=== PATIENT | female | born 1990 | race Caucasian/White ===

== ENCOUNTER 2018-06-26 06:33 | Inpatient (IN) ==
[~2018-06-26 06:33] MED LIST: ANCEF VIAL 1 GRAM ONE; D5 1/2 NS 1L W PITOCIN 20 UNITS/L 20 UNITS/1,000 ML BAG IV ONE; LR 1000 ML IV 1,000 ML IV ONE
[2018-06-26] MEDS ORDERED: ANCEF VIAL 1 GRAM IVP ONE (06:38)
[2018-06-26] MEDS ORDERED: D5 1/2 NS 1000 ML 1,000 ML IV SCH (06:38)
[2018-06-26] MEDS ORDERED: DILAUDID INJ ONE (06:52)
[2018-06-26] MEDS ORDERED: MARCAINE SPINAL ONE ×2 (06:53→14:28)
[2018-06-26] MEDS ORDERED: D5 1/2 NS 1L W PITOCIN 20 UNITS/L 20 UNITS/1,000 ML BAG IV ONE (07:15)
[2018-06-26] MEDS ORDERED: LR 1000 ML IV 1,000 ML IV ONE (07:15)
[2018-06-26] MEDS ORDERED: ZOFRAN INJ 4 MG VIAL IVP PRN ×2 (08:44→09:14)
[2018-06-26] MEDS ORDERED: REGLAN INJ 10 MG VIAL IVP PRN ×2 (08:44→09:14)
[2018-06-26] MEDS ORDERED: PHENERGAN INJ 25 MG IVP PRN (08:44)
[2018-06-26] MEDS ORDERED: DILAUDID INJ IVP PRN (08:44)
[2018-06-26] MEDS ORDERED: BENADRYL INJ 50 MG VIAL IVP PRN ×2 (08:44→09:14)
[2018-06-26] MEDS ORDERED: ADACEL or BOOSTRIX TDaP VACCINE IM ONE ×2 (09:14→12:53)
[2018-06-26] MEDS ORDERED: TORADOL 30 MG VIAL IVP PRN (09:14)
[2018-06-26] MEDS ORDERED: D5 1/2 NS 1000 ML 1,000 ML with PITOCIN 20 UNITS IV SCH ×2 (09:14)
[2018-06-26] MEDS ORDERED: NARCAN INJ IVP PRN (09:14)
[2018-06-26] MEDS ORDERED: SUDAFED PE PO PRN (09:14)
[2018-06-26] MEDS ORDERED: MYLICON TAB 80 MG CHEW PO PRN (09:14)
[2018-06-26] MEDS ORDERED: PERCOCET TAB 5/325 MG PO PRN (09:14)
[2018-06-26] MEDS: ROBITUSSIN (PLAIN) PO SCH ×4 (12:44→20:36)
[2018-06-26] MEDS: PRENATAL PLUS PO SCH (12:45)
[2018-06-26] MEDS: ZANTAC PO SCH ×2 (12:45→20:36)
[2018-06-26] MEDS ORDERED: VERSED ONE (14:06)
[2018-06-26] MEDS ORDERED: EPHEDRINE SULFATE INJ ONE (14:28)
[2018-06-26] MEDS ORDERED: XYLOCAINE 1 % (PLAIN) ONE (14:28)
[2018-06-26] MEDS ORDERED: PITOCIN ONE (14:28)
[2018-06-27 06:38] LABS: HEMATOCRIT 31.1 % (36.0-47.0); HEMOGLOBIN 10.6 g/dL (12.0-16.0)
[2018-06-27] MEDS ORDERED: MOTRIN TAB 800 MG PO PRN (09:11)
[2018-06-27] MEDS ORDERED: PERCOCET TAB 5/325 MG PO PRN (09:11)
[2018-06-27] MEDS: ROBITUSSIN (PLAIN) PO SCH (09:21)
[2018-06-27] MEDS: ZANTAC PO SCH (09:21)
[2018-06-27] MEDS: PRENATAL PLUS PO SCH (09:21)
[2018-06-27 12:44] VITALS: BP 96/55
[2018-06-27] MEDS ORDERED: BACTROBAN CREAM TOP SCH (14:00)
[2018-06-27] MEDS ORDERED: COLACE CAP 100 MG PO SCH (21:00)
== END 2018-06-27 12:45 | disposition home or self-care (01) | DRG 785 ==
LOC: LD 06:33 → MED/SURG 08:44
PROVIDERS: ADMIT Specialist; ATTEND Specialist
DX: O99.824 Streptococcus B carrier state complicating childbirth; Z37.0 Single live birth; Z30.2 Encounter for sterilization; O34.211 Maternal care for low transverse scar from previous cesarean delivery; N85.8 Other specified noninflammatory disorders of uterus; Z23 Encounter for immunization; Z3A.39 39 weeks gestation of pregnancy; O99.613 Diseases of the digestive system complicating pregnancy, third trimester; B95.1 Streptococcus, group B, as the cause of diseases classified elsewhere
CPT/HCPCS: 36415; 85014; 85018; 90715; A4216; A4222; S0197; J0690; J1170; J1200; J1885; J2250; J2405; J2590; J2765; J3490; J7120

== ENCOUNTER 2020-08-16 07:28 | Inpatient (IN) ==
[2020-08-16] MEDS ORDERED: LR 1000 ML IV 1,000 ML IV ONE ×2 (07:35→09:48)
[2020-08-16] MEDS ORDERED: ANCEF 1 GRAM IV PREMIX* 1 G/50 ML BAG IV ONE (07:35)
[2020-08-16] MEDS ORDERED: BACTROBAN TOPICAL OINT ONE (07:41)
[2020-08-16] MEDS ORDERED: OFIRMEV IV 1000 MG VIAL 1,000 MG/100 ML VIAL IV ONE (08:08)
[2020-08-16] MEDS ORDERED: FENTANYL INJ 100 mcg ONE ×2 (08:08→08:31)
[2020-08-16] MEDS ORDERED: BRIDION ONE ×2 (08:08→08:31)
[2020-08-16] MEDS ORDERED: PEPCID 20 MG IV PREMIX* 20 MG/50 ML BAG IV ONE (08:08)
[2020-08-16] MEDS ORDERED: ULTANE GAS IN ONE ×2 (08:09→08:31)
[2020-08-16] MEDS ORDERED: ZEMURON 50 MG VIAL ONE ×2 (08:09→08:31)
[2020-08-16] MEDS ORDERED: ROBINUL ONE (08:31)
[2020-08-16] MEDS ORDERED: VERSED ONE (08:31)
[2020-08-16] MEDS ORDERED: ZOFRAN INJ 4 MG VIAL ONE (08:31)
[2020-08-16] MEDS ORDERED: TORADOL 30 MG VIAL ONE (08:31)
[2020-08-16] MEDS ORDERED: XYLOCAINE 2 % (PLAIN) ONE (08:31)
[2020-08-16] MEDS ORDERED: DIPRIVAN VIAL ONE (08:31)
[2020-08-16] MEDS ORDERED: LACRI-LUBE S.O.P. ONE (08:31)
[2020-08-16] MEDS ORDERED: DECADRON INJ ONE (08:31)
[2020-08-16] MEDS ORDERED: KETALAR ONE (08:31)
[2020-08-16] MEDS ORDERED: DILAUDID INJ ONE (09:25)
[2020-08-16] MEDS ORDERED: BENADRYL INJ 50 MG VIAL IVP PRN (10:07)
[2020-08-16] MEDS ORDERED: REGLAN INJ 10 MG VIAL IVP PRN (10:07)
[2020-08-16] MEDS ORDERED: DILAUDID INJ IVP PRN (10:07)
[2020-08-16] MEDS ORDERED: ZOFRAN INJ 4 MG VIAL IVP PRN (10:07)
[2020-08-16] MEDS ORDERED: PHENERGAN INJ 25 MG IM PRN (10:07)
[2020-08-16] MEDS ORDERED: REGLAN INJ 10 MG VIAL ONE (11:19)
[2020-08-16] MEDS: DILAUDID INJ IVP PRN ×3 (12:40→22:40)
[2020-08-16] MEDS ORDERED: TRANSDERM-SCOP TD ONE (13:00)
[2020-08-16] MEDS ORDERED: TRANSDERM-SCOP TD SCH (13:00)
[2020-08-16] MEDS: D5 1/2 NS 1000 ML 1,000 ML IV SCH ×2 (14:34→23:30)
[2020-08-16] MEDS: ZOFRAN INJ 4 MG VIAL IV PRN ×3 (16:58→22:40)
[2020-08-17] MEDS: PHENERGAN INJ 25 MG IM PRN ×2 (03:30→16:18)
[2020-08-17] MEDS ORDERED: TYLENOL 325 MG TAB PO ONE (03:56)
[2020-08-17] MEDS: TYLENOL 325 MG TAB PO PRN ×2 (04:01→11:40)
[2020-08-17 06:08] LABS: BASOPHILS % (AUTO) 0.2 % (0.2-1.0); HEMATOCRIT 35.2 % (36.0-47.0); HEMOGLOBIN 11.5 g/dL (12.0-16.0); LYMPHOCYTES # (AUTO) 1.1 X10^3/uL (1.3-2.9); LYMPHOCYTES % (AUTO) 6.3 % (21.0-51.0); MEAN CORPUSCULAR HEMOGLOBIN 29.5 pg (27.0-34.0); MEAN CORPUSCULAR HGB CONC 32.6 g/dL (33.0-35.0); MEAN CORPUSCULAR VOLUME 90.4 fL (80.0-100.0); MEAN PLATELET VOLUME 9.8 fL (7.4-11.0); MONOCYTES # (AUTO) 2.1 x10^3/uL (0.3-0.8); MONOCYTES % (AUTO) 12.8 % (0.0-13.0); NEUTROPHILS # (AUTO) 13.6 x10^3/uL (2.2-4.8); NEUTROPHILS % (AUTO) 80.7 % (42.0-75.0); PLATELET COUNT 203 X10^3/uL (150.0-450.0); WHITE BLOOD COUNT 16.8 X10^3/uL (3.6-10.0)
[2020-08-17 06:26] LABS: ALANINE AMINOTRANSFERASE 610 Units/L (12-78); ALBUMIN 3.2 g/dL (3.4-5.0); ALKALINE PHOSPHATASE 103 Units/L (46-116); ASPARTATE AMINO TRANSFERASE 402 Units/L (15-37); BLOOD UREA NITROGEN 6 mg/dL (7-18); CALCIUM 8.3 mg/dL (8.5-10.1); CHLORIDE 100 mmol/L (98-107); COR CA(FOR HYPOALB) 8.9 mg/dL (8.5-10.1); COR NA(FOR HYPERGLY) 133 mmol/L (136-145); CREATININE 0.55 mg/dL (0.55-1.02); SODIUM 132 mmol/L (136-145); TOTAL PROTEIN 6.1 g/dL (6.4-8.2); eGFR NON BLACK RACES > 60 (>60)
--- NOTE | 2020-08-17 08:12 | DR.PROGNOT ---
Hospital Progress Notes - Progress Note for Day of: Progress Note Date: 08/17/20 - Chief Complaint Chief Complaint: c/o back pain with nausea , vomiting last night . urine is dark . Bilirubin is up 2.3 . was 0.3 pre op . AST 402. ALT 610. Alk Ph 103 . temp 98.2. stable VS. to have MRCP today - Past Medical Family Social History Past Med/Fam/Surg Hx: No changes since H&P Allergies: Allergies No Known Drug Allergies Allergy (Verified 07/28/20 10:00) - Review Of Systems ROS: No change since H&P - Vital Signs Vital Signs: Temperature 98.8 F Pulse Rate [Left Brachial] 88 Pulse Rate 83 Respiratory Rate 16 Blood Pressure [Left Arm] 115/64 Blood Pressure 100/56 O2 Sat by Pulse Oximetry 98 - Physical Exam Oriented: Normal Eyes: Normal Ear: Normal Nose: Normal Throat: Normal Respiratory: Normal Cardiovascular: Normal : Normal GI:Auscultation: Normal GI:Palpation: Normal GI: Tenderness: RUQ (soft abdomen with moderate tenderness . BS +) Mood Description: Calm Speech Pattern: Clear, Appropriate - Laboratory and Diagnostics Result Diagrams: 08/17/20 05:20 08/17/20 05:20 Labs: Laboratory WBC 16.8 X10^3/uL (3.6-10.0) H 08/17/20 05:20 RBC 3.90 X10^6/uL (3.5-5.4) 08/17/20 05:20 Hgb 11.5 g/dL (12.0-16.0) L 08/17/20 05:20 Hct 35.2 % (36.0-47.0) L 08/17/20 05:20 MCV 90.4 fL (80.0-100.0) 08/17/20 05:20 MCH 29.5 pg (27.0-34.0) 08/17/20 05:20 MCHC 32.6 g/dL (33.0-35.0) L 08/17/20 05:20 RDW 13.0 % (11.6-16.5) 08/17/20 05:20 Plt Count 203 X10^3/uL (150.0-450.0) 08/17/20 05:20 MPV 9.8 fL (7.4-11.0) 08/17/20 05:20 Neut % (Auto) 80.7 % (42.0-75.0) H 08/17/20 05:20 Lymph % (Auto) 6.3 % (21.0-51.0) L 08/17/20 05:20 [place] % (Auto) 12.8 % (0.0-13.0) 08/17/20 05:20 Eos % (Auto) 0.0 % (0.9-2.9) L 08/17/20 05:20 Baso % (Auto) 0.2 % (0.2-1.0) 08/17/20 05:20 Neut # (Auto) 13.6 x10^3/uL (2.2-4.8) H 08/17/20 05:20 Lymph # (Auto) 1.1 X10^3/uL (1.3-2.9) L 08/17/20 05:20 [place] # (Auto) 2.1 x10^3/uL (0.3-0.8) H 08/17/20 05:20 Eos # (Auto) 0.0 x10^3/uL (0.0-0.2) 08/17/20 05:20 Baso # (Auto) 0.0 X10^3/uL (0.0-0.1) 08/17/20 05:20 Absolute Nucleated RBC 0.0 /100WBC 08/17/20 05:20 Sodium 132 mmol/L (136-145) L 08/17/20 05:20 Corrected Sodium 133 mmol/L (136-145) L 08/17/20 05:20 Potassium 4.3 mmol/L (3.5-5.1) 08/17/20 05:20 Chloride 100 mmol/L (98-107) 08/17/20 05:20 Carbon Dioxide 25.0 mmol/L (21-32) 08/17/20 05:20 BUN 6 mg/dL (7-18) L 08/17/20 05:20 Creatinine 0.55 mg/dL (0.55-1.02) 08/17/20 05:20 Est GFR (MDRD) Af Amer > 60 (>60) 08/17/20 05:20 Est GFR (MDRD) Non-Af > 60 (>60) 08/17/20 05:20 Glucose 132 mg/dL (65-99) H 08/17/20 05:20 Calcium 8.3 mg/dL (8.5-10.1) L 08/17/20 05:20 Corrected Calcium 8.9 mg/dL (8.5-10.1) 08/17/20 05:20 Total Bilirubin 2.30 mg/dL (0.2-1.0) H 08/17/20 05:20 AST 402 Units/L (15-37) H 08/17/20 05:20 ALT 610 Units/L (12-78) H 08/17/20 05:20 Alkaline Phosphatase 103 Units/L (46-116) 08/17/20 05:20 Total Protein 6.1 g/dL (6.4-8.2) L 08/17/20 05:20 Albumin 3.2 g/dL (3.4-5.0) L 08/17/20 05:20 Globulin 2.9 g/dL (2.5-4.5) 08/17/20 05:20 Albumin/Globulin Ratio 1.1 Ratio (1.1-2.1) 08/17/20 05:20 Tissue Pathology To follow 08/16/20 10:08 - Assessment and Plan 1: post op lap kelley . elevated liver enzymes and bilirubin , R/O CBD stone or other causes of CBD obstruction . to have MRCP .. may need further procedures depends on the findings ..
[2020-08-17] MEDS: D5 1/2 NS 1000 ML 1,000 ML IV SCH ×4 (08:20→22:55)
[2020-08-17] MEDS: MORPHINE SULFATE INJ 2 MG INJ IVP PRN ×3 (08:35→17:55)
[2020-08-17] MEDS ORDERED: ANCEF VIAL 1 GRAM IVP SCH (09:00)
[2020-08-17] MEDS ORDERED: D5 1/2 NS 1000 ML 1,000 ML IV SCH (09:00)
--- NOTE | 2020-08-17 09:31 | MRI ---
HISTORYGallbladder dyskinesia status post cholecystectomy 08/16/2020TUDYMRI abdomen without IV contrast, MRCPCOMPARISONUltrasound 07/06/2020TECHNIQUEMRI of the abdomenwithout IV contrast is performed using standard sequences in multiple planes. MRCP protocol is performed.FINDINGSLiver is normal in size. No focal hepatic lesion is seen. Mild artifact from surgical clips is seen in the gallbladder fossa. There is no intrahepatic biliary ductal dilation. Common bile duct is very poorly visualized likely due to clip artifacts and motion. Visualized portions are not dilated.Pancreas displays no abnormalities. No adrenal nodules are seen. No renal abnormality is seen. Spleen is normal in size. No suspicious lymphadenopathy is seen. Trace free fluid is seen in the right upper quadrant mild fluid in the right side of the anterior abdominal wall consistent with recent surgery no focal fluid collection is seen.IMPRESSIONNo biliary ductal dilation is seen.Mild intraperitoneal fluid is consistent with recent surgery.There is mild fluid in the right anterior abdominal wall musculature and tracking along the fascia, likely due to recent surgery. No focal fluid collection is seen.Electronically signed by: Alejo Angelo (Aug 17, 2020 09:30:26)
[2020-08-17] MEDS: ZOFRAN INJ 4 MG VIAL IV PRN ×2 (11:46→17:55)
[2020-08-17] MEDS: ANCEF VIAL 1 GRAM 1 G in NS 100 ML IV + SPIKE MINIBAG* 100 ML IV SCH ×2 (16:17→22:45)
[2020-08-18] MEDS: ZOFRAN INJ 4 MG VIAL IV PRN ×3 (04:40→18:53)
[2020-08-18] MEDS: D5 1/2 NS 1000 ML 1,000 ML IV SCH ×3 (05:15→17:36)
[2020-08-18] MEDS: ANCEF VIAL 1 GRAM 1 G in NS 100 ML IV + SPIKE MINIBAG* 100 ML IV SCH ×2 (05:39→13:31)
[2020-08-18 06:09] LABS: BASOPHILS % (AUTO) 0.1 % (0.2-1.0); EOSINOPHILS % (AUTO) 0.1 % (0.9-2.9); HEMATOCRIT 36.7 % (36.0-47.0); LYMPHOCYTES # (AUTO) 0.5 X10^3/uL (1.3-2.9); LYMPHOCYTES % (AUTO) 3.5 % (21.0-51.0); MEAN CORPUSCULAR HEMOGLOBIN 29.4 pg (27.0-34.0); MEAN CORPUSCULAR HGB CONC 32.7 g/dL (33.0-35.0); MEAN PLATELET VOLUME 9.6 fL (7.4-11.0); MONOCYTES # (AUTO) 1.8 x10^3/uL (0.3-0.8); MONOCYTES % (AUTO) 13.7 % (0.0-13.0); NEUTROPHILS # (AUTO) 10.9 x10^3/uL (2.2-4.8); NEUTROPHILS % (AUTO) 82.6 % (42.0-75.0); PLATELET COUNT 204 X10^3/uL (150.0-450.0); RED BLOOD COUNT 4.07 X10^6/uL (3.5-5.4); RED CELL DISTRIBUTION WIDTH 13.3 % (11.6-16.5); WHITE BLOOD COUNT 13.2 X10^3/uL (3.6-10.0)
[2020-08-18 06:28] LABS: ALANINE AMINOTRANSFERASE 551 Units/L (12-78); ALBUMIN 3.2 g/dL (3.4-5.0); ALKALINE PHOSPHATASE 137 Units/L (46-116); ASPARTATE AMINO TRANSFERASE 314 Units/L (15-37); BLOOD UREA NITROGEN 3 mg/dL (7-18); CALCIUM 8.5 mg/dL (8.5-10.1); CARBON DIOXIDE 29.2 mmol/L (21-32); CHLORIDE 105 mmol/L (98-107); COR CA(FOR HYPOALB) 9.1 mg/dL (8.5-10.1); COR NA(FOR HYPERGLY) 141 mmol/L (136-145); CREATININE 0.61 mg/dL (0.55-1.02); SODIUM 141 mmol/L (136-145); TOTAL PROTEIN 6.2 g/dL (6.4-8.2); eGFR NON BLACK RACES > 60 (>60)
[2020-08-18] MEDS ORDERED: TORADOL 30 MG VIAL IVP ONE (08:06)
[2020-08-18] MEDS ORDERED: TORADOL 30 MG VIAL IVP PRN (14:10)
--- NOTE | 2020-08-18 15:30 | NM ---
Nuclear medicine hepatobiliary scanIndication: Obstructive jaundice. Post cholecystectomy.Comparison: August 17, 2020 MR abdomenTechnique: 5.5 millicuries of technetium 99 M Choletec were given IV per protocol. Planar imaging obtained. Images were obtained over the course of 1 hour, and in for 30 minutes further.Findings: Prompt uptake of radiotracer seen by the liver, with no convincing small bowel or common bile duct activity.Further delayed imaging was performed at almost 2 hours, with no appreciable activity in the peritoneal cavity or in small-bowel. Bladder activity noted.Impression: Intense activity remains in the liver at 3 hours, highly concerning for biliary obstruction. Common bile duct is presumed to be obstructed. Surgical consultation recommended.Discussed with Dr. Amezcua by Dr. StreetElectronically signed by: COLETTE STREET (Aug 18, 2020 15:28:24)
[2020-08-18] MEDS: PHENERGAN INJ 25 MG IM PRN ×2 (15:41→17:59)
[2020-08-18 16:45] VITALS: BP 105/63
== END 2020-08-18 18:50 | disposition short-term general hospital (02) | DRG 418 ==
LOC: SURG1 07:28 → MED/SURG 14:34
PROVIDERS: ADMIT Surgery; ATTEND Surgery
DX: R73.09 Other abnormal glucose; D72.828 Other elevated white blood cell count; K81.1 Chronic cholecystitis; E80.6 Other disorders of bilirubin metabolism; R94.5 Abnormal results of liver function studies; K82.8 Other specified diseases of gallbladder; E87.1 Hypo-osmolality and hyponatremia; R11.2 Nausea with vomiting, unspecified; K83.1 Obstruction of bile duct